=== PATIENT | female | born 1930 | race Caucasian/White ===

== ENCOUNTER 2016-11-06 14:13 | Emergency (ER) | payer MEDICARE ==
--- NOTE | 2016-11-06 14:41 | ERNOTE ---
Chest Pain/Cardiac HPI Date of Service: 11/06/16 Chief Complaint: Palpitations Time Seen by Provider: 11/06/16 14:41 Source: patient, family Exam Limitations: no limitations Immunizations: IMMUNIZATION HX History of Influenza Vaccine No Allergies/Adverse Reactions: Allergies No Known Allergies Allergy (Verified 11/06/16 14:29) Home Medications: HOME MEDICATIONS Calcium Carbonate/Vitamin D3 [Calcarb 600 With Vitamin D] 1 tab PO DAILY [Last Taken 06/22/16] Multivit with Calcium,Iron,Min [Women's Daily Formula] 1 each PO DAILY 06/22/16 [Last Taken 06/22/16] Ubidecarenone [Co Q-10] 100 mg PO DAILY 06/22/16 [Last Taken 06/22/16] Warfarin Sodium [Coumadin] 2.5 mg PO SUMOWEFRSA 06/22/16 [Last Taken 06/21/16] Lisinopril 10 mg PO HS #60 tablet 06/23/16 [Last Taken Unknown] Warfarin Sodium [Jantoven] 5 mg PO TUTH 06/25/16 [Last Taken Unknown] Narrative: Presents with c/o heart palpitation. Occurred spontaneously at rest. Pt denies any recent ingestion of caffeine, or any other stimulant. She denies any chest pain or SOb. Timing: constant Severity/Quality: moderate Modifying Factors - Improves: Present: nothing Modifying Factors - Worsens: Present: nothing Associated Symptoms: Present: palpitations. Absent: headache, dizziness, syncope, cough, shortness of breath, diaphoresis, fever/chills, weakness Review of Systems - Review of Systems Constitutional: Present: no symptoms reported EYE: Present: no symptoms reported ENT: Present: no symptoms reported Respiratory: Present: no symptoms reported Cardiology: Present: See HPI Gastrointestinal/Abdominal: Present: no symptoms reported Genitourinary: Present: no symptoms reported Musculoskeletal: Present: no symptoms reported Skin: Present: no symptoms reported Neurological: Present: no symptoms reported Endocrine: Present: no symptoms reported Hematologic/Lymphatic: Present: no symptoms reported Psych: Present: no symptoms reported All Other Systems: All systems neg except as marked - Patient's Past Medical History Patient History - Cardiac/Respiratory: Atrial Fibrillation, Hypertension Patient History - Cancer: Other Patient History - Surgical Procedures: Appendectomy, Hysterectomy, Other Patient History - Other: None - Family History Mother Family History - Medical: Family History - Cardiac/Respiratory: No pertinent hx, History Unknown Father Family History - Medical: Family History - Cardiac/Respiratory: No pertinent hx, History Unknown Sister Family History - Medical: Family History - Cardiac/Respiratory: History Unknown Brother Family History - Medical: Family History - Cardiac/Respiratory: Aneurysm - Social History Living Situations: home Abuse History: No History of abuse Psych History: No pertinent hx Alcohol Use: none Drug Use: none - Immunizations History of Influenza Vaccine: No Physical Exam - Physical Exam General Appearance: Present: wd/wn, alert, no apparent distress Eye Exam: Normal inspection: bilateral, PERRL: bilateral, EOMI: bilateral Ears, Nose, Throat: Present: normal ENT inspection Neck: Present: normal inspection, nontender Respiratory: Present: no respiratory distress, normal breath sounds, no accessory muscle use, chest nontender, lungs clear Cardiovascular/Chest: Present: no murmur, irregularly irregular Gastrointestinal/Abdominal: Present: normal bowel sounds, nontender, nondistended, soft, no organomegaly Extremity Exam: Present: normal inspection, non-tender, normal range of motion, no edema Neurological Exam: Present: alert, oriented, other - tearful, and anxious about her palpitation. Skin Exam: Present: normal color, warm/dry ED Progress - Results and Orders Patient's Lab Results:: I have reviewed the patient's lab results. - Vital Signs Patient's Vital Signs:: I have reviewed the patient's vital signs. Vital Signs: Vital Signs 11/06/16 11/06/16 14:24 14:34 Temperature 36.8 C Pulse Rate 134 H 86 Respiratory 18 12 Rate Blood Pressure 146/97 134/84 O2 Sat by Pulse 96 96 Oximetry - EKG EKG: atrial fibrillation EKG read: Interp. by me - with RVR @ 140s. Repeat EKG: sinus rhythm with no significant ST or T wave abnormality. - X-Ray X-Ray #1 X-Ray: chest - No acute pulmonary finding - Progress/Reassessment Chief Complaint: Palpitations Progress:: Improved - Spontaneously. Departure - Departure Clinical Impression: Chronic a-fib Disposition: Home self-care Condition: Good Instructions: Atrial Fibrillation, [id number] Referrals: Librado Hearn MD [Primary Care Provider] -
[2016-11-06 14:42] LABS: Hemoglobin 12.6 gm/dL (12.5-16.0); Mean Cell Volume 102.6 fl (78-100); Mean Corpuscular Hemoglobin 33.2 pg (27-31); Mean Corpuscular Hgb Conc 32.3 g/dl (32-36); Mean Platelet Volume 10.7 fl (6.0-9.5); Neutrophil # 3.5 K/mm3 (1.3-6.0); Neutrophil % 58.9 % (42-75.0); Platelet Count 188 K/mm3 (150-450); Red Cell Distribution Width 12.8 % (11.5-14.0)
--- OUTSIDE RECORDS SUMMARY | 2016-11-06 14:51 | XMS REPORT | Continuity of Care Document ---
:1930 Author Organization [facility] ([facility]) Address [address] [place] [address] Phone [phone] Care Team Providers Name Role Phone Catherine Sarkar Primary Care Provider [phone] Source Comments This disclosure is being made pursuant to the Care Everywhere program, applicable federal and state laws, and may not contain all informaitonavailable regarding this patient.[facility] ([facility]) Active Allergies and Adverse Reactions No Known Allergies Current Medications Prescription Sig. Disp. Refills Start Date End Date Status multivitamin tablet Take 1 tablet by Active mouth daily warfarin 5 mg tablet Take 5 mg by Active mouth daily carvedilol 25 mg tablet Take 25 mg by Active mouth 2 times daily with meals lisinopril 20 mg tablet Take 20 mg by Active mouth daily potassium chloride 10 Take 10 mEq by Active mEq XR tablet mouth 2 times daily amiodarone 200 mg Take 1 tablet 90 tablet 3 07/06/2015 Active tablet (200 mg total) by mouth daily Active Problems Problem Noted Date Atrial flutter 07/06/2015 Diastolic dysfunction 07/06/2015 Essential hypertension 07/06/2015 Immunizations Name Dates Previously Given Next Due Hepatitis A, unspecified 01/12/2004,05/05/2003 Influenza, unspecified 08/09/2006,07/07/2004 Pneumococcal Polysaccharide, PPSV23 (Pneumovax 23) 05/01/2002 Typhoid Vi Polysaccharide 05/05/2003 Yellow Fever 05/05/2003 Social History Tobacco Use Types Packs/Day Years Used Date Never Smoker Last Filed Vital Signs Vital Sign Reading Time Taken Blood Pressure 130/72 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
[2016-11-06 14:54] LABS: Prothrombin Time (Patient) 15.6 Seconds (9.4-11.4)
[2016-11-06 15:01] LABS: Albumin * 3.5 gm/dl (3.4-5.0); Anion Gap 10.7 mmol/L (6.8-13.8); BUN/Creatinine Ratio 24.6 (9.0-21.6); Bilirubin, Total 0.4 mg/dL (0.0-1.1); Ca. Corrected For Albumin 8.8 mg/dL (8.4-10.2); Calcium * 8.7 mg/dL (7.9-10.9); Carbon Dioxide 30.6 mmol/L (24-32.6); Potassium 4.3 mmol/L (3.4-4.6); Total Protein 7.4 gm/dL (6.2-8.2); Troponin I 0.046 ng/ml (0.00-0.10)
[2016-11-06 15:03] LABS: INR 1.5 INR (0.90-1.10); Partial Thrombolplastin Time 30.6 Seconds (24-32)
[2016-11-06 16:01] VITALS: BP 140/76
== END 2016-11-06 16:01 | disposition home or self-care (01) ==
LOC: ER 14:13
DX: I48.2 Chronic atrial fibrillation (principal); Z79.01 Long term (current) use of anticoagulants; I10 Essential (primary) hypertension

== ENCOUNTER 2016-12-24 23:53 | Observation (INO) | payer MEDICARE ==
[2016-12-25] MEDS ORDERED: DILTIAZEM HCL 5 MG/ML VIAL IV ONE ×2 (00:05)
[2016-12-25] MEDS ORDERED: DILTIAZEM HCL 125 MG in DEXTROSE 5 % IN WATER 100 ML IV PRN ×2 (00:10)
--- NOTE | 2016-12-25 00:13 | ERNOTE ---
Chest Pain/Cardiac HPI Time Seen by Provider: 12/24/16 23:59 Source: patient, family Exam Limitations: no limitations Immunizations: IMMUNIZATION HX History of Influenza Vaccine No Allergies/Adverse Reactions: Allergies No Known Allergies Allergy (Verified 12/25/16 00:04) Home Medications: HOME MEDICATIONS Calcium Carbonate/Vitamin D3 [Calcarb 600 With Vitamin D] 1 tab PO DAILY [Last Taken 06/22/16] Multivit with Calcium,Iron,Min [Women's Daily Formula] 1 each PO DAILY 06/22/16 [Last Taken 06/22/16] Ubidecarenone [Co Q-10] 100 mg PO DAILY 06/22/16 [Last Taken 06/22/16] Warfarin Sodium [Coumadin] 2.5 mg PO TU 06/22/16 [Last Taken 06/21/16] Warfarin Sodium [Jantoven] 5 mg PO SUMOTUWETHFRSA 06/25/16 [Last Taken Unknown] Lisinopril 5 mg PO BID 12/25/16 [Last Taken Unknown] Narrative: Pt was sleeping and was awoken by chest and bilateral wrist pain. gave nitro x2 and waited 15 min and gave another nitro x2 then 325 mg ASA. pain did not resolve and they presented to the ED. Timing: other - improving Severity/Quality: moderate - 5/10 now, severe - 9/10 at peak, aching, burning Location: substernal Chest Pain Radiation: arms Activities at Onset: sleep Modifying Factors - Improves: Present: nitroglycerin Modifying Factors - Worsens: Present: nothing Nitro Today/Relief: 0.4 mg x 3 - x4, provided at home, mild relief Aspirin Treatment Today: 325 mg x 1, provided at home Associated Symptoms: Present: palpitations. Absent: dizziness - but states that he had to help her out of the chair, shortness of breath, diaphoresis, nausea, vomiting Prior Treatment: Reports: recently seen - by Dr. Hearn, INR was elevated and coumadin dose was reduced Review of Systems - Review of Systems Constitutional: Absent: recent illness, fever EYE: Present: no symptoms reported ENT: Present: no symptoms reported Respiratory: Absent: shortness of breath Cardiology: Present: See HPI Gastrointestinal/Abdominal: Absent: nausea Genitourinary: Present: no symptoms reported Musculoskeletal: Present: joint pain - bilateral wrists Skin: Absent: rash Neurological: Absent: headache, numbness, tingling Endocrine: Absent: excessive sweating Hematologic/Lymphatic: Present: easy bruising Psych: Present: no symptoms reported - Patient's Past Medical History Patient History - Cardiac/Respiratory: Atrial Fibrillation, Hypertension Patient History - Cancer: Other Patient History - Surgical Procedures: Appendectomy, Hysterectomy, Other Patient History - Other: None - Family History Mother Family History - Medical: Family History - Cardiac/Respiratory: No pertinent hx, History Unknown Father Family History - Medical: Family History - Cardiac/Respiratory: No pertinent hx, History Unknown Sister Family History - Medical: Family History - Cardiac/Respiratory: History Unknown Brother Family History - Medical: Family History - Cardiac/Respiratory: Aneurysm - Social History Living Situations: home Abuse History: No History of abuse Psych History: No pertinent hx Alcohol Use: none Drug Use: none - Immunizations History of Influenza Vaccine: No Physical Exam - Physical Exam General Appearance: Present: wd/wn, alert, moderate distress, thin Neck: Present: normal inspection, nontender Respiratory: Present: no respiratory distress, normal breath sounds, chest nontender, lungs clear Cardiovascular/Chest: Present: tachycardia, irregularly irregular Gastrointestinal/Abdominal: Present: normal bowel sounds, nontender, nondistended, soft Extremity Exam: Present: normal inspection, normal range of motion, no edema Neurological Exam: Present: alert, oriented, 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 Results and Orders: Laboratory Tests 12/25/16 12/25/16 12/25/16 00:10 00:10 00:10 WBC 6.1 Hgb 11.8 L Hct 36.6 L Plt Count 168 PT 34.5 H INR (Anticoag Therapy) 3.32 H PTT (Kellie) 37.1 H Sodium 143 H Potassium 4.0 Chloride 106 Carbon Dioxide 29.3 Anion Gap 11.7 BUN 41 H Creatinine 1.26 Est GFR (Non-Af Amer) 43 L BUN/Creatinine Ratio 32.5 H Random Glucose 132 H Calcium 9.3 Total Bilirubin 0.3 AST 39 ALT 26 Alkaline Phosphatase 96 Troponin I 0.033 Total Protein 7.0 Albumin 3.4 - Vital Signs Patient's Vital Signs:: I have reviewed the patient's vital signs. - EKG EKG: atrial fibrillation - with RVR 125-135 EKG read: Interp. by me - X-Ray X-Ray #1 X-Ray: chest Interpretation: Interp. by me X-ray Comments: No infiltrate or effusions, scarring left lung base present 11/09 also, stable. - Progress/Reassessment Progress Note-Subjective: 12/25/16 01:08 HR still variable but max back up to 115 at this time BP 100/52. Cardizem drip increased to 10 mg /hr. Pt 12/25/16 01:19 Spoke with [facility] hospitalist. She agrees with admit to [facility] for telemetry and continued cardizem drip Departure - Departure Clinical Impression: Atrial fibrillation with rapid ventricular response Disposition: [facility] Condition: Serious
[2016-12-25] MEDS ORDERED: NORMAL SALINE 1,000 ML IV PRN (00:16)
[2016-12-25 00:17] LABS: Hematocrit 36.6 % (37.0-47.0); Hemoglobin 11.8 gm/dL (12.5-16.0); Mean Corpuscular Hemoglobin 32.2 pg (27-31); Mean Corpuscular Hgb Conc 32.2 g/dl (32-36); Mean Platelet Volume 11.2 fl (6.0-9.5); Neutrophil # 3.1 K/mm3 (1.3-6.0); Neutrophil % 51.2 % (42-75.0); Platelet Count 168 K/mm3 (150-450); Red Blood Count 3.66 M/mm3 (4.2-5.4); Red Cell Distribution Width 13.1 % (11.5-14.0); White Blood Count 6.1 K/mm3 (4.0-10.5)
[2016-12-25 00:33] LABS: Prothrombin Time (Patient) 34.5 Seconds (9.4-11.4)
[2016-12-25 00:35] LABS: INR 3.32 INR (0.90-1.10); Partial Thrombolplastin Time 37.1 Seconds (24-32)
[2016-12-25 00:38] LABS: Albumin * 3.4 gm/dl (3.4-5.0); Anion Gap 11.7 mmol/L (6.8-13.8); BUN/Creatinine Ratio 32.5 (9.0-21.6); Bilirubin, Total 0.3 mg/dL (0.0-1.1); Ca. Corrected For Albumin 9.5 mg/dL (8.4-10.2); Calcium * 9.3 mg/dL (7.9-10.9); Carbon Dioxide 29.3 mmol/L (24-32.6); Troponin I 0.033 ng/ml (0.00-0.10)
--- OUTSIDE RECORDS SUMMARY | 2016-12-25 00:49 | XMS REPORT | Continuity of Care Document ---
:1930 Author Organization [facility] ([facility]) Address [address] [place] [address] Phone [phone] Care Team Providers Name Role Phone Catherine Sarkar Primary Care Provider [phone] Source Comments This disclosure is being made pursuant to the Care Everywhere program, applicable federal and state laws, and may not contain all informaitonavailable regarding this patient.[facility] ([facility]) Active Allergies and Adverse Reactions No Known [...] 07/06/2015 Diastolic dysfunction 07/06/2015 Essential hypertension 07/06/2015 Most Recent Encounters Date Type Specialty Providers Description 11/28/2016 Lab Requisition Pathology Lab Services, [facility] Dx: Neoplasm of uncertain behavior of skin 11/08/2016 Telephone Med GI/Hepatology Aleena Gipson Chief Comp: Referral Immunizations Name Dates Previously Given Next Due Hepatitis A, unspecified 01/12/2004,05/05/2003 Influenza, unspecified 08/09/2006,07/07/2004 Pneumococcal Polysaccharide, PPSV23 (Pneumovax 23) 05/01/2002 Typhoid Vi Polysaccharide 05/05/2003 Yellow Fever 05/05/2003 Social History Tobacco Use Types Packs/Day Years Used Date Never Smoker Last Filed Vital Signs Vital Sign Reading Time Taken Blood Pressure 130/72 07/06/2015 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 Pulse 56 07/06/2015 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 Temperature - - Respiratory Rate - - Height - - Weight 56.7 kg (125 lb) 07/06/2015 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 Body Mass Index - - Oxygen Saturation - - Plan of Care Health Maintenance Due Date Last Done Comments Hepatitis B Vaccine (1 of 3 - Primary 1930 Series) Tdap Vaccine 01/25/1939 Lipid Disorder Screening 01/25/1946 Td Vaccine 01/25/1946 Zoster Vaccine 1988 Pneumococcal Vaccine (2 of 2 - PCV13) 05/01/2003 05/01/2002 Influenza Vaccine: Seasonal Completed 08/09/2006, 07/07/2004 Results from Last 3 Months DERMATOPATHOLOGY EXAM (11/26/2016 10:46 AM) Component Value Range Case Report Surgical Pathology Case: [id number] Authorizing Provider:Lab Services, [facility] Collected: 11/26/2016 10:46 AM Pathologist: Hannah Alicea MD Received:11/28/2016 10:46 AM Specimens: A) - Skin, other, specify, R Zygoma B) - Skin, other, specify, L Cheek Diagnosis A.Skin, right zygoma, 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 B.Skin, left cheek, shave biopsy: Seborrheic keratosis. I have personally reviewed this case and edited the report as necessary. Clinical Information Tissue source/site: A. Skin shave-R zygoma. B. Skin shave-L cheek. Pertinent clinical history and findings: A. 0.8 hyperkeratotic horn like papule. B. 0.8 cm thickened scaly papule. Clinicaldifferential diagnosis: A. Cutaneous horn versus SCC. B. BCC versus SCC. Gross Description A.Received in formalin, in a container labeled Raven Hu, date of , and "R Zygoma", is a 1.0 x 0.6 x 0.4 cm meehan-mancilla shave biopsy.The specimen is inked, bisectedand submitted entirely in A1. AJF/christinaa B. Received in formalin in a container labeled with Raven Hu, hospital number, and "L cheek" is a 0.8 x 0.6 x 0.1 cm meehan-mancilla shave biopsy. The specimen is inked, bisectedand submitted entirely in B1. AJF/cja Microscopic Description A. Sections show a full thickness proliferation of atypical keratinocytes associated with overlying compact hyperkeratosis and parakeratosis.Margins are involved. B. Sections show a flat-bottomed hyperkeratotic papilloma composed of cytologically bland basaloid epithelial cells associated with horned cysts and pseudo-horned cysts. Performed by:Hao Bartholomew MD, R4/elham Specimen Skin - Skin, other, specify
--- OUTSIDE RECORDS SUMMARY | 2016-12-25 01:23 | XMS REPORT | Continuity of Care Document ---
:1930 Author Organization [facility] ([facility]) Address [address] [place] [address] Phone [phone] Care Team Providers Name Role Phone Catherine Sarkar Primary Care Provider [phone] Source Comments This disclosure is being made pursuant to the Care Everywhere program, applicable federal and state laws, and may not contain all informaitonavailable regarding this patient.[facility] ([facility]) Active Allergies and Adverse Reactions No [...] Description 11/28/2016 Lab Requisition Pathology Lab Services, [facility] Dx: Neoplasm of uncertain behavior of skin [...] Taken Blood Pressure 130/72 07/06/2015 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
--- NOTE | 2016-12-25 03:35 | HP ---
Chief Complaint - Chief Complaint Date of Service: 12/25/16 Time of Service: 02:40 Chief Complaint: Chest pain History of Present Illness: 86 years old female adm to the hospital with reports of chest pain radiating to BL arms and across the chest. Associated s/s nausea, palpitation, diaphoresis, shortness of breath and loose stool. Pt denies dizziness, vomiting and headache. While at home she took Nitro tab x3 and aspirin 325mg x1 without much relief so her brought her to the ER. PMH significant for A-fib (on Coumadin its dose was recently lowered, she was on amiodarone and Coreg but it was D/C by her PCP in 2015), Hypertension, hyperlipidemia, CHF( 06/2015 2D echo : Biatrial enlargement, mild LVH EF60%), osteoporosis and kidney stones. While in ER CXR: No acute cardiopulmonary abnormality,initial Troponin 0.033, EKG- Afib RVR, she was started on Cardizem drip. Adm to the unit on Cardizem drip and later converted to NSR. Plan of care discussed with pt she verbalized understanding and agrees. - Patient's Past Medical History Patient History - Medical: No pertinent hx, Kidney stone, Osteoporosis, Other - BL wrist pain , sciatica Patient History - Cardiac/Respiratory: Atrial Fibrillation, Hypertension, Hyperlipidemia Patient History - Cancer: No Hx of Cancer Patient History - Surgical Procedures: Appendectomy, Hysterectomy, Other - 2012 ORIF lateral epicondyle right knee Patient History - Other: None LMP (females 10-50): Menopausal - Family History Mother Family History - Medical: Family History - Cardiac/Respiratory: No pertinent hx, History Unknown Father Family History - Medical: Family History - Cardiac/Respiratory: No pertinent hx, History Unknown Sister Family History - Medical: Family History - Cardiac/Respiratory: History Unknown Brother Family History - Medical: Family History - Cardiac/Respiratory: Aneurysm - Social History Living Situations: spouse Abuse History: No History of abuse Psych History: No pertinent hx Smoking Status: Never smoker Have you smoked in the past 12 months: No Do you dip or chew tobacco: No Alcohol Use: none Drug Use: none - Immunizations Immunizations Up to Date: Yes Hx Pneumococcal Vaccination: Yes History of Influenza Vaccine: No Review Of Systems (GEN) - Review of Systems Generalized/Overall Review: Present: No Symptoms Reported EENTM: Present: No Symptoms Reported Respiratory: Present: No Symptoms Reported Abdominal: Present: No Symptoms Reported Genitourinary: Present: Incontinent Musculoskeletal: Present: Joint Pain Neurological: Present: No Symptoms Reported Skin: Present: No Symptoms Reported Immunizations: IMMUNIZATION HX History of Influenza Vaccine No Allergies/Adverse Reactions: Allergies Allergy/AdvReac Type Severity Reaction Status Date / Time No Known Allergies Allergy Verified 12/25/16 00:04 Home Medications: HOME MEDICATIONS Calcium Carbonate/Vitamin D3 [Calcarb 600 With Vitamin D] 1 tab PO DAILY [Last Taken 12/24/16] Multivit with Calcium,Iron,Min [Women's Daily Formula] 1 each PO DAILY 06/22/16 [Last Taken 12/24/16] Ubidecarenone [Co Q-10] 100 mg PO DAILY 06/22/16 [Last Taken 12/24/16] Warfarin Sodium [Coumadin] 2.5 mg PO TU 06/22/16 [Last Taken 06/21/16] Warfarin Sodium [Jantoven] 5 mg PO SUMOTUWETHFRSA 06/25/16 [Last Taken 12/24/16] Lisinopril 5 mg PO BID 12/25/16 [Last Taken 12/24/16] Exam - Exam Vital Signs: Vital Signs - Last Taken Temp 37.0 C 12/25/16 01:45 Pulse 73 12/25/16 01:45 Resp 18 12/25/16 01:45 BP 151/78 12/25/16 01:45 Pulse Ox 96 12/25/16 01:45 Constitutional: Present: Alert, Oriented x3, Cooperative, Well developed, No distress, Elderly ENT Exam: Present: moist mucous membranes Eye Exam: bilateral eye: PERRL Neck: Present: full range of motion Back Exam: Present: normal inspection Respiratory: Present: chest non-tender, lungs clear, normal breath sounds, no respiratory distress, no accessory muscle use Cardiovascular/Chest: Present: normal peripheral pulses, regular rate, rhythm, no chest tenderness, no edema, no gallop Peripheral Pulses: dorsalis-pedis (R): 3+, dorsalis-pedis (L): 3+ Abdomen: Present: Normal bowel sounds, soft, nontender, nondistended, no rebound tenderness /Rectal: Present: Exam deferred Extremity: Present: normal range of motion, non-tender, normal inspection, no pedal edema, no calf tenderness Skin Exam: Present: normal color, warm/dry, no cyanosis Lymphatic: Present: no adenopathy Neurologic: Present: oriented x 3 Appearance: Present: appropriate appearance Eye contact: Present: cooperative, good eye contact Thoughts: Present: normal thought pattern Diagnostic Studies: Laboratory Results WBC 6.1 K/mm3 (4.0-10.5) 12/25/16 00:10 RBC 3.66 M/mm3 (4.2-5.4) L 12/25/16 00:10 Hgb 11.8 gm/dL (12.5-16.0) L 12/25/16 00:10 Hct 36.6 % (37.0-47.0) L 12/25/16 00:10 MCV 100.0 fl (78-100) 12/25/16 00:10 MCH 32.2 pg (27-31) H 12/25/16 00:10 MCHC 32.2 g/dl (32-36) 12/25/16 00:10 RDW 13.1 % (11.5-14.0) 12/25/16 00:10 Plt Count 168 K/mm3 (150-450) 12/25/16 00:10 MPV 11.2 fl (6.0-9.5) H 12/25/16 00:10 Immature Gran % (Auto) 0.20 % (0.001-0.429) 12/25/16 00:10 Immature Gran # (Auto) 0.01 K/mm3 (0.000-0.0310) 12/25/16 00:10 Neutrophils % 51.2 % (42-75.0) 12/25/16 00:10 Lymphocytes % 31.9 % (20-51) 12/25/16 00:10 Monocytes % 12.6 % (0.0-9) H 12/25/16 00:10 Eosinophils % 3.4 % (0.0-3.0) H 12/25/16 00:10 Basophils % 0.7 % (0.0-1.0) 12/25/16 00:10 Nucleated RBC % 0.0 k/mm3 (0-1) 12/25/16 00:10 Neutrophils # 3.1 K/mm3 (1.3-6.0) 12/25/16 00:10 Lymphocytes # 1.9 k/mm3 (1.5-3.5) 12/25/16 00:10 Monocytes # 0.8 k/mm3 (0.0-1.0) 12/25/16 00:10 Eosinophils # 0.2 k/mm3 (0.0-0.7) 12/25/16 00:10 Absolute Basophils 0.0 k/mm3 (0.0-0.1) 12/25/16 00:10 PT 34.5 Seconds (9.4-11.4) H 12/25/16 00:10 INR (Anticoag Therapy) 3.32 INR (0.90-1.10) H 12/25/16 00:10 PTT ([place]) 37.1 Seconds (24-32) H 12/25/16 00:10 Sodium 143 mmol/L (132-142) H 12/25/16 00:10 Plasma Sodium 144 mmol/L (130-142) H 12/25/16 00:10 Potassium 4.0 mmol/L (3.4-4.6) 12/25/16 00:10 Chloride 106 mmol/L (97-106) 12/25/16 00:10 Carbon Dioxide 29.3 mmol/L (24-32.6) 12/25/16 00:10 Anion Gap 11.7 mmol/L (6.8-13.8) 12/25/16 00:10 BUN 41 mg/dL (3-23) H 12/25/16 00:10 Creatinine 1.26 mg/dL (0.4-1.4) 12/25/16 00:10 Est GFR (Non-Af Amer) 43 mL/min (60-130) L 12/25/16 00:10 BUN/Creatinine Ratio 32.5 (9.0-21.6) H 12/25/16 00:10 Random Glucose 132 mg/dL (70-110) H 12/25/16 00:10 Calcium 9.3 mg/dL (7.9-10.9) 12/25/16 00:10 Calcium Adj for Albumin 9.5 mg/dL (8.4-10.2) 12/25/16 00:10 Total Bilirubin 0.3 mg/dL (0.0-1.1) 12/25/16 00:10 AST 39 U/L (0-48) 12/25/16 00:10 ALT 26 U/L (19-67) 12/25/16 00:10 Alkaline Phosphatase 96 U/L (50-170) 12/25/16 00:10 Troponin I 0.033 ng/ml (0.00-0.10) 12/25/16 00:10 Total Protein 7.0 gm/dL (6.2-8.2) 12/25/16 00:10 Albumin 3.4 gm/dl (3.4-5.0) 12/25/16 00:10 Assessment/Plan - Narrative Narrative: Acute on chronic Paroxysmal A-fib Seen on EKG: A-fib RVR, initial troponin 0.033 Cardizem drip initiated, was converted to NSR while on unit. Stopped drip and initiated Metoprolol 12.5mg BID Pt was taking Amiodarone and coreg in 2015 but medication was stopped by PCP Continue with telemetry monitoring 2D echo pending TSH pending Continue with Coumadin, on adm INR 3.32 pharmacy to dose. Hypertension-stable continue to monitor vital signs Resume home dose of lisinopril Hyperlipidemia Lipid panel pending CHF- stable 06/2015 2D Echo: Biatrial enlargement, mild LVH EF 60% Code status: Full VTE ppx: Therapeutic Coumadin and ambulate Anticipate discharge home 0-2 days and follow up with PCP Time 40 minutes and previous records reviewed. - Assessment/Plan (1) Atrial fibrillation with rapid ventricular response Problem: Acute (2) CHF (congestive heart failure), NYHA class III Problem: Chronic (3) Hypertension Problem: Chronic Qualifiers: Hypertension type: essential hypertension Qualified Code(s): I10 - Essential (primary) hypertension
[2016-12-25 06:14] LABS: Prothrombin Time (Patient) 34.4 Seconds (9.4-11.4)
[2016-12-25 06:20] LABS: INR 3.31 INR (0.90-1.10)
[2016-12-25 06:33] LABS: Anion Gap 11.5 mmol/L (6.8-13.8); BUN/Creatinine Ratio 34.7 (9.0-21.6); Calcium * 8.7 mg/dL (7.9-10.9); Carbon Dioxide 29.6 mmol/L (24-32.6); Chol/HDL Risk Ratio 4.1 mg/dL (3.3-4.4); Estimated Creat Clear 30.9; Potassium 4.1 mmol/L (3.4-4.6)
[2016-12-25 06:37] LABS: Troponin I 0.455 ng/ml (0.00-0.10)
[2016-12-25] MEDS ORDERED: WARFARIN SODIUM 5 MG TABLET PO SCH ×2 (07:15)
[2016-12-25 07:27] LABS: TSH * 101.515 uIU/mL (0.358-3.74)
[2016-12-25] MEDS ORDERED: LISINOPRIL 5 MG TABLET PO SCH (09:00)
[2016-12-25] MEDS ORDERED: METOPROLOL TARTRATE 25 MG TABLET PO SCH (09:00)
[2016-12-25] MEDS ORDERED: AMIODARONE HCL 200 MG TABLET PO SCH (09:00)
[2016-12-25] MEDS: MULTIVITAMINS 1 TAB TAB.CHEW PO SCH (09:47)
[2016-12-25] MEDS: CALCIUM CARBONATE/VITAMIN D3 1 TAB TABLET PO SCH (09:47)
[2016-12-25] MEDS: Co Q-10 100 MG PO SCH (09:49)
[2016-12-25] MEDS: LEVOTHYROXINE SODIUM 50 MCG TABLET PO SCH (09:57)
[2016-12-25] MEDS ORDERED: ROSUVASTATIN CALCIUM 10 MG TABLET PO SCH (21:00)
[2016-12-26 05:36] LABS: Prothrombin Time (Patient) 31.5 Seconds (9.4-11.4)
[2016-12-26 05:54] LABS: INR 3.03 INR (0.90-1.10)
[2016-12-26] MEDS: LEVOTHYROXINE SODIUM 50 MCG TABLET PO SCH (06:26)
[2016-12-26 06:52] VITALS: BP 140/72
[2016-12-26] MEDS: CALCIUM CARBONATE/VITAMIN D3 1 TAB TABLET PO SCH (08:42)
[2016-12-26] MEDS: MULTIVITAMINS 1 TAB TAB.CHEW PO SCH (08:42)
[2016-12-26] MEDS: Co Q-10 100 MG PO SCH (08:43)
--- NOTE | 2016-12-26 08:47 | DS ---
(1) Atrial fibrillation with rapid ventricular response Problem: Acute (2) CHF (congestive heart failure), NYHA class III Problem: Chronic (3) CAD (coronary artery disease), [place] coronary artery Problem: Acute (4) Hypothyroid Problem: Acute Description of Stay: 86 years old white female was admitted through emergency room because of chest pain and shortness of breath she was in atrial fibrillation with rapid ventricular response she was treated with Cardizem drip and she converted to normal sinus rhythm. troponin went up to 0.4. She was given some IV bolus because of hypotension. She remained stable remained to be in normal sinus rhythm. She was started on amiodarone 400 mg daily. TSH is markedly elevated so she was started on levothyroxine 50 g a day. cardiology consultation was obtained from Dr. Ghotra according to her patient did not have NV the elevated troponin was due to demand ischemia. Echocardiogram showed normal ejection fraction and no wall motion abnormality but showed pulmonary hypertension. She remained stable and feeling better so she will be discharged Procedures Performed: none Discharge Disposition: Home self care Disposition: Home self-care Condition: Fair Discharge Activity: Activity as tolerated Referrals: Librado Hearn MD [Primary Care Provider] - Additional Patient Instructions (free text): Follow-up in one week with Dr. Hearn Chest x-ray CMP BNP and TSH in 1 week Prescriptions (Any new or edited meds): Amiodarone HCl [Cordarone] 200 mg PO DAILY #100 tablet Levothyroxine Sodium [Synthroid] 50 mcg PO DAILY@0700 #30 tablet Complete Home Medications List: Complete Home Medication List: Calcium Carbonate/Vitamin D3 [Calcarb 600 With Vitamin D] 1 tab PO DAILY Multivit with Calcium,Iron,Min [Women's Daily Formula] 1 each PO DAILY 06/22/16 Ubidecarenone [Co Q-10] 100 mg PO DAILY 06/22/16 Warfarin Sodium [Coumadin] 7 mg PO MO 06/22/16 Warfarin Sodium [Jantoven] 5 mg PO SUTUWETHFRSA 06/25/16 Lisinopril 5 mg PO BID 12/25/16 Amiodarone HCl [Cordarone] 200 mg PO DAILY #100 tablet 12/26/16 Levothyroxine Sodium [Synthroid] 50 mcg PO DAILY@0700 #30 tablet 12/26/16
[2016-12-26] MEDS ORDERED: LISINOPRIL 5 MG TABLET PO SCH (09:00)
[2016-12-26] MEDS ORDERED: ASPIRIN 81 MG TABLET.DR PO SCH (09:00)
[2016-12-26] MEDS ORDERED: AMIODARONE HCL 200 MG TABLET PO SCH (09:00)
--- NOTE | 2016-12-26 13:46 | ECHO ---
This report is available in the EMR
[2016-12-26] MEDS ORDERED: WARFARIN SODIUM 1 TAB TAB PO SCH (17:00)
== END 2016-12-26 09:30 | disposition home or self-care (01) ==
LOC: ER 23:53 → SCU 12-25 01:19 → UNDOADMIN 12-25 01:19 → SCU 12-25 13:13 → INTOOBSV 12-25 13:13 → MS 12-25 13:35
PROVIDERS: ADMIT Nurse Practitioner; ATTEND Internal Medicine
DX: I48.2 Chronic atrial fibrillation (principal); Z79.01 Long term (current) use of anticoagulants; I25.10 Atherosclerotic heart disease of native coronary artery without angina pectoris; I10 Essential (primary) hypertension; E03.9 Hypothyroidism, unspecified

== ENCOUNTER 2017-09-17 08:46 | Observation (INO) | payer MEDICARE ==
[2017-09-17] MEDS ORDERED: MORPHINE SULFATE 2 MG/ML DISP.SYRIN IV ONE ×2 (09:15→14:17)
[2017-09-17] MEDS ORDERED: MORPHINE SULFATE 2 MG/ML DISP.SYRIN ONE (09:19)
--- NOTE | 2017-09-17 09:23 | ERNOTE ---
Back Pain ER HPI Presenting Symptoms: other - flank pain Time Seen by Provider: 09/17/17 09:09 Source: patient, family Exam Limitations: no limitations Immunizations: IMMUNIZATION HX Immunizations Up to Date Yes History of Influenza Vaccine No Hx Pneumococcal Vaccination Yes Allergies/Adverse Reactions: Allergies No Known Allergies Allergy (Verified 09/17/17 08:54) Home Medications: HOME MEDICATIONS Calcium Carbonate/Vitamin D3 [Calcarb 600 With Vitamin D] 1 tab PO DAILY [Last Taken 12/24/16] Multivit with Calcium,Iron,Min [Women's Daily Formula] 1 each PO DAILY 06/22/16 [Last Taken 12/24/16] Ubidecarenone [Co Q-10] 100 mg PO DAILY 06/22/16 [Last Taken 12/24/16] Warfarin Sodium [Coumadin] 7 mg PO MO 06/22/16 [Last Taken 06/21/16] Warfarin Sodium [Jantoven] 5 mg PO SUTUWETHFRSA 06/25/16 [Last Taken 12/24/16] Lisinopril 5 mg PO BID 12/25/16 [Last Taken 12/24/16] Amiodarone HCl [Cordarone] 200 mg PO DAILY #100 tablet 12/26/16 [Last Taken Unknown] Levothyroxine Sodium [Synthroid] 50 mcg PO DAILY@0700 #30 tablet 12/26/16 [Last Taken Unknown] Narrative: Patient presents to the ED with right flank pain. She relates that this started overnight at 2am when it woke her from sleep. it has been waxing and waning since then but has not gone away. Pain right low abdomen initially, now that has resolved and it has moved to her right back. it has been persistent in the right flank since then. No vomiting or fever. No dysuria. 8/10 pain now. No CP or SOB. No other focal N/T/W. Timing: Reports: constant Quality/Severity: Reports: severe Location of pain: Reports: other - right flank Activities at Onset: Reports: none Recent Injury?: Reports: no Possible Precipitating Factor: Reports: none Modifying Factors - (Worsens): Reports: nothing Associated Symptoms: Denies: fever/chills, constipation/incontinence, problems urinating, difficulty walking, numbess/weakness in legs Prior Treament: Denies: recently seen Review of Systems - Review of Systems Constitutional: Absent: fever EYE: Present: no symptoms reported ENT: Present: no symptoms reported Respiratory: Absent: shortness of breath Cardiology: Absent: chest pain Gastrointestinal/Abdominal: Present: See HPI Genitourinary: Present: See HPI Musculoskeletal: Present: See HPI Skin: Absent: rash Neurological: Absent: weakness - Patient's Past Medical History Patient History - Medical: No pertinent hx, Kidney stone, Osteoporosis, Other Patient History - Cardiac/Respiratory: Atrial Fibrillation, Hypertension, Hyperlipidemia Patient History - Cancer: No Hx of Cancer Patient History - Surgical Procedures: Appendectomy, Hysterectomy, Other Patient History - Other: None - Family History Mother Family History - Medical: Family History - Cardiac/Respiratory: No pertinent hx, History Unknown Father Family History - Medical: Family History - Cardiac/Respiratory: No pertinent hx, History Unknown Sister Family History - Medical: Family History - Cardiac/Respiratory: History Unknown Brother Family History - Medical: Family History - Cardiac/Respiratory: Aneurysm - Social History Living Situations: home Abuse History: No History of abuse Psych History: No pertinent hx Alcohol Use: none Drug Use: none - Immunizations Immunizations Up to Date: Yes Hx Pneumococcal Vaccination: Yes History of Influenza Vaccine: No Physical Exam - Physical Exam General Appearance: Present: alert, no apparent distress Head Exam: Present: normal inspection, no evidence of injury Eye Exam: Normal inspection: bilateral, PERRL: bilateral Ears, Nose, Throat: Present: normal ENT inspection Neck: Present: normal inspection Respiratory: Present: no respiratory distress, normal breath sounds, no accessory muscle use, lungs clear Cardiovascular/Chest: Present: regular rate, rhythm, normal peripheral pulses Gastrointestinal/Abdominal: Present: normal bowel sounds, nontender, nondistended, soft Back Exam: Present: normal inspection, normal range of motion, no vertebral tenderness, CVA tenderness (R) Extremity Exam: Present: normal inspection, normal range of motion Neurological Exam: Present: alert, normal mood/affect, no motor/sensory deficits Skin Exam: Present: normal color, warm/dry ED Progress - Results and Orders Patient's Lab Results:: I have reviewed the patient's lab results. - Vital Signs Patient's Vital Signs:: I have reviewed the patient's vital signs. Vital Signs: Vital Signs 09/17/17 08:49 Temperature 36.5 C Pulse Rate 66 Respiratory 12 Rate Blood Pressure 200/70 O2 Sat by Pulse 94 Oximetry - CT/Ultrasound CT/Ultrasound Narrative: I reviewed CT abd/pelvis report per radiology - Progress/Reassessment Chief Complaint: Back Pain Progress Note-Subjective: 09/17/17 11:57 D/W Urology (Dr. Soriano). He recommends reversal of coumadin, IV urogram, cath UA and admission. He recommends holding off on ABx pending cath UA results. He will consult. NPO for now per Urology. Pt agreeable. D/W Dr Springer who will admit with Urology consultation. 09/17/17 11:59 Departure Clinical Impression: Flank pain, Abnormal CT scan, Supratherapeutic INR - Departure Disposition: [facility] Condition: Stable
[2017-09-17 09:34] LABS: Hematocrit 41.9 % (37.0-47.0); Hemoglobin 13.6 gm/dL (12.5-16.0); Mean Cell Volume 93.9 fl (78-100); Mean Corpuscular Hemoglobin 30.5 pg (27-31); Mean Corpuscular Hgb Conc 32.5 g/dl (32-36); Mean Platelet Volume 11.4 fl (6.0-9.5); Neutrophil # 3.8 K/mm3 (1.3-6.0); Neutrophil % 63.8 % (42-75.0); Platelet Count 172 K/mm3 (150-450); Red Blood Count 4.46 M/mm3 (4.2-5.4); Red Cell Distribution Width 14.3 % (11.5-14.0)
[2017-09-17 09:40] LABS: Urine Bilirubin Negative (NEGATIVE); Urine Blood 250 /ul (NEGATIVE); Urine Ketone Negative (NEGATIVE); Urine Nitrite Negative (NEGATIVE); Urine Protein 30 mg/dL (NEGATIVE); Urine Specific Gravity 1.015 SP.GR. (1.005-1.010); Urine Urobilinogen Normal (NORMAL)
[2017-09-17 09:53] LABS: Urine Appearance Slightly Cloudy; Urine Bacteria 2+; Urine Color Yellow; Urine RBC 25-50 /hpf (0-5)
[2017-09-17 09:55] LABS: Albumin * 3.7 gm/dl (3.4-5.0); Anion Gap 6.8 mmol/L (6.8-13.8); BUN/Creatinine Ratio 27.3 (9.0-21.6); Bilirubin, Total 0.8 mg/dL (0.0-1.1); Calcium * 9.1 mg/dL (7.9-10.9); Carbon Dioxide 33.6 mmol/L (24-32.6); Potassium 4.4 mmol/L (3.4-4.6); Total Protein 7.7 gm/dL (6.2-8.2)
[2017-09-17 10:02] LABS: INR 5.31 INR (0.90-1.10)
[2017-09-17] MEDS: NORMAL SALINE 1,000 ML IV PRN (11:46)
[2017-09-17] MEDS ORDERED: PHYTONADIONE (VIT K1) 5 MG TABLET PO ONE (11:56)
[2017-09-17] MEDS ORDERED: PHYTONADIONE (VIT K1) 5 MG TABLET ONE (12:02)
[2017-09-17 12:31] LABS: Urine Bilirubin Negative (NEGATIVE); Urine Blood 250 /ul (NEGATIVE); Urine Ketone Negative (NEGATIVE); Urine Nitrite Negative (NEGATIVE); Urine Protein 30 mg/dL (NEGATIVE); Urine Specific Gravity 1.025 SP.GR. (1.005-1.010); Urine Urobilinogen Normal (NORMAL); Urine pH 6.5 pH (5.0-7.0)
[2017-09-17 12:48] LABS: Urine Appearance Slightly Cloudy; Urine Color Yellow; Urine WBC TRACE /hpf (0-5)
[2017-09-17 12:49] LABS: Urine Bacteria 1+
--- NOTE | 2017-09-17 14:27 | HP ---
Chief Complaint - Chief Complaint Date of Service: 09/17/17 Time of Service: 14:09 Chief Complaint: right flank pain History of Present Illness: Raven Hu, is an 87-year-old live female, patient of Dr. Hearn, with previous medical history of paroxysmal atrial fibrillation, congestive heart failure, essential hypertension,hypothyroid, TIA, who was admitted on 2017 because of right flank pain. One day prior to admission the patient's INR was elevated at 5.8 due to Coumadin which she takes for her paroxysmal atrial fibrillation. The patient did not have any gross bleeding as per assisted living personnel. Coumadin was put on hold. 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 The pain did not improve and settled down and her right flank area and so she went to the emergency room because she thought she had a kidney stone like in the years past. The CT scan in the emergency room did not show any kidney stones but did show a mass in her mid pole of her right kidney. The differential included renal cyst, hemorrhage in the renal cyst or even a renal tumor. The emergency room physician consulted the urologist and he recommended doing the CT urogram , get a cath UA, reversing the Coumadin and admitting the patient. The patient currently says that her pain is for over 10. She got 5 mg of Vit K in the ER. - Patient's Past Medical History Patient History - Medical: No pertinent hx, Kidney stone, Osteoporosis, Other Patient History - Cardiac/Respiratory: Atrial Fibrillation, CVA/Stroke, Hypertension, Hyperlipidemia Patient History - Cancer: No Hx of Cancer Patient History - Surgical Procedures: Appendectomy, Hysterectomy Patient History - Other: None - Family History Mother Family History - Medical: Family History - Cardiac/Respiratory: No pertinent hx, History Unknown Family History - Cancer: No pertinent family hx Father Family History - Medical: Family History - Cardiac/Respiratory: No pertinent hx, History Unknown Family History - Cancer: No pertinent family hx Sister Family History - Medical: Family History - Cardiac/Respiratory: History Unknown Family History - Cancer: No pertinent family hx Brother Family History - Medical: Family History - Cardiac/Respiratory: Aneurysm Family History - Cancer: No pertinent family hx - Social History Living Situations: spouse Abuse History: No History of abuse Psych History: No pertinent hx Smoking Status: Never smoker Have you smoked in the past 12 months: No Do you dip or chew tobacco: No Patient requests Smoking Cessation Consult: No Initiate information on Smoking Cessation: No Alcohol Use: none Drug Use: none - Immunizations Immunizations Up to Date: Yes Hx Pneumococcal Vaccination: Yes History of Influenza Vaccine: No Review Of Systems (GEN) - Review of Systems Generalized/Overall Review: Absent: Chills, Fever Respiratory: Absent: Cough, Shortness of Breath Cardiac: Absent: Chest Pain, Edema, Palpitations Abdominal: Absent: Nausea, Vomiting Genitourinary: Absent: Urgency, Frequency Musculoskeletal: Present: Back Pain Immunizations: IMMUNIZATION HX Immunizations Up to Date Yes History of Influenza Vaccine No Hx Pneumococcal Vaccination Yes Allergies/Adverse Reactions: Allergies Allergy/AdvReac Type Severity Reaction Status Date / Time No Known Allergies Allergy Verified 09/17/17 14:06 Home Medications: HOME MEDICATIONS Warfarin Sodium [Coumadin] 7 mg PO MO 06/22/16 [Last Taken 06/21/16] Warfarin Sodium [Jantoven] 5 mg PO SUTUWETHFRSA 06/25/16 [Last Taken 12/24/16] Amiodarone HCl [Cordarone] 200 mg PO DAILY #100 tablet 12/26/16 [Last Taken Unknown] Levothyroxine Sodium [Synthroid] 50 mcg PO DAILY@0700 #30 tablet 12/26/16 [Last Taken Unknown] Aloe Vera 25 mg PO DAILY 09/17/17 [Last Taken Unknown] L.acidoph,Paracasei, B.lactis [Probiotic] 1 each PO DAILY 09/17/17 [Last Taken Unknown] Exam - Exam Vital Signs: Vital Signs - Last Taken Temp 36.7 C 09/17/17 13:40 Pulse 60 09/17/17 13:40 Resp 18 09/17/17 13:40 BP 188/81 09/17/17 13:40 Pulse Ox 96 09/17/17 13:40 Constitutional: Present: Alert, Oriented x3, Cooperative, Elderly, Thin and frail ENT Exam: Present: hearing grossly normal Eye Exam: bilateral eye: normal inspection, PERRL, EOMI Back Exam: Present: CVA tenderness (R) - mild Cardiovascular/Chest: Present: regular rate, rhythm, no murmur, JVD Abdomen: Present: Normal bowel sounds, soft, nontender, nondistended Extremity: Present: no pedal edema, no calf tenderness Diagnostic Studies: Abnormal Lab Results 09/17/17 Range/Units 12:14 Urine Protein 30 H (NEGATIVE) mg/dL Urine Blood 250 H (NEGATIVE) /ul Prot Sulfosalicylic Acd 2+ H (0) mg/dL Urine RBC 10-25 H (0-5) /hpf Urine WBC Trace H (0-5) /hpf Urine Bacteria 1+ H (NONE) Laboratory Results WBC 6.0 K/mm3 (4.0-10.5) 09/17/17 09:25 RBC 4.46 M/mm3 (4.2-5.4) 09/17/17 09:25 Hgb 13.6 gm/dL (12.5-16.0) 09/17/17 09:25 Hct 41.9 % (37.0-47.0) 09/17/17 09:25 MCV 93.9 fl (78-100) 09/17/17 09:25 MCH 30.5 pg (27-31) 09/17/17 09:25 MCHC 32.5 g/dl (32-36) 09/17/17 09:25 RDW 14.3 % (11.5-14.0) H 09/17/17 09:25 Plt Count 172 K/mm3 (150-450) 09/17/17 09:25 MPV 11.4 fl (6.0-9.5) H 09/17/17 09:25 Immature Gran % (Auto) 0.20 % (0.001-0.429) 09/17/17 09:25 Immature Gran # (Auto) 0.01 K/mm3 (0.000-0.0310) 09/17/17 09:25 Neutrophils % 63.8 % (42-75.0) 09/17/17 09:25 Lymphocytes % 16.5 % (20-51) L 09/17/17 09:25 Monocytes % 17.0 % (0.0-9) H 09/17/17 09:25 Eosinophils % 2.2 % (0.0-3.0) 09/17/17 09:25 Basophils % 0.3 % (0.0-1.0) 09/17/17 09:25 Nucleated RBC % 0.0 k/mm3 (0-1) 09/17/17 09:25 Neutrophils # 3.8 K/mm3 (1.3-6.0) 09/17/17 09:25 Lymphocytes # 1.0 k/mm3 (1.5-3.5) L 09/17/17 09:25 Monocytes # 1.0 k/mm3 (0.0-1.0) 09/17/17 09:25 Eosinophils # 0.1 k/mm3 (0.0-0.7) 09/17/17 09:25 Absolute Basophils 0.0 k/mm3 (0.0-0.1) 09/17/17 09:25 PT 54.0 Seconds (9.0-11.0) H 09/17/17 09:25 INR (Anticoag Therapy) 5.31 INR (0.90-1.10) H* 09/17/17 09:25 Sodium 142 mmol/L (132-142) 09/17/17 09:25 Plasma Sodium 142 mmol/L (130-142) 09/17/17 09:25 Potassium 4.4 mmol/L (3.4-4.6) 09/17/17 09:25 Chloride 106 mmol/L (97-106) 09/17/17 09:25 Carbon Dioxide 33.6 mmol/L (24-32.6) H 09/17/17 09:25 Anion Gap 6.8 mmol/L (6.8-13.8) 09/17/17 09:25 BUN 27 mg/dL (3-23) H 09/17/17 09:25 Creatinine 0.99 mg/dL (0.4-1.4) 09/17/17 09:25 Est GFR (Non-Af Amer) 56 mL/min (60-130) L 09/17/17 09:25 BUN/Creatinine Ratio 27.3 (9.0-21.6) H 09/17/17 09:25 Random Glucose 94 mg/dL (70-110) 09/17/17 09:25 Calcium 9.1 mg/dL (7.9-10.9) 09/17/17 09:25 Calcium Adj for Albumin 9.0 mg/dL (8.4-10.2) 09/17/17 09:25 Total Bilirubin 0.8 mg/dL (0.0-1.1) 09/17/17 09:25 AST 39 U/L (0-48) 09/17/17 09:25 ALT 38 U/L (19-67) 09/17/17 09:25 Alkaline Phosphatase 125 U/L (50-170) 09/17/17 09:25 Total Protein 7.7 gm/dL (6.2-8.2) 09/17/17 09:25 Albumin 3.7 gm/dl (3.4-5.0) 09/17/17 09:25 Lipase 155 U/L (73-393) 09/17/17 09:25 Urine Color Yellow 09/17/17 12:14 Urine Appearance Slightly cloudy 09/17/17 12:14 Urine pH 6.5 pH (5.0-7.0) 09/17/17 12:14 Ur Specific [place] 1.025 SP.GR. (1.005-1.010) 09/17/17 12:14 Urine Protein 30 mg/dL (NEGATIVE) H 09/17/17 12:14 Urine Glucose (UA) Negative mg/dL (NEGATIVE) 09/17/17 12:14 Urine Ketones Negative mg/dL (NEGATIVE) 09/17/17 12:14 Urine Blood 250 /ul (NEGATIVE) H 09/17/17 12:14 Urine Nitrate Negative (NEGATIVE) 09/17/17 12:14 Urine Bilirubin Negative mg/dl (NEGATIVE) 09/17/17 12:14 Prot Sulfosalicylic Acd 2+ mg/dL (0) H 09/17/17 12:14 Urine Urobilinogen Normal EU/dl (NORMAL) 09/17/17 12:14 Ur Leukocyte Esterase Negative /ul (NEGATIVE) 09/17/17 12:14 Urine RBC 10-25 /hpf (0-5) H 09/17/17 12:14 Urine WBC Trace /hpf (0-5) H 09/17/17 12:14 Ur Epithelial Cells 0-5 /hpf (0-5) 09/17/17 12:14 Urine Bacteria 1+ (NONE) H 09/17/17 12:14 Urine Culture Comments No culture indicated 09/17/17 12:14 Assessment/Plan - Assessment/Plan (1) Renal mass, right Assessment: likely due to hemorrhagic cyst r/o tumor Problem: Acute (2) Supratherapeutic INR Assessment: Vit k 5 mg PO x 1 given in the ER. will do a follow up INR. If still elevated and if with possible urologic procedure in the morning , will give FFP or 4 PCC (kcentra). Problem: Acute (3) Flank pain Assessment: continue with IVF and IV morphine PRN. Problem: Acute (4) Paroxysmal A-fib Problem: Acute (5) Hypothyroid Problem: Acute
[2017-09-17] MEDS ORDERED: AMIODARONE HCL 200 MG TABLET PO SCH (15:00)
[2017-09-17 15:36] LABS: TSH * 4.622 uIU/mL (0.358-3.74)
[2017-09-17] MEDS ORDERED: MORPHINE SULFATE 2 MG/ML DISP.SYRIN IV PRN (16:53)
[2017-09-17] MEDS: LISINOPRIL 20 MG TABLET PO SCH (17:03)
[2017-09-17 18:08] LABS: Hematocrit 39.5 % (37.0-47.0); Hemoglobin 12.8 gm/dL (12.5-16.0); Mean Corpuscular Hemoglobin 30.8 pg (27-31); Mean Corpuscular Hgb Conc 32.4 g/dl (32-36); Mean Platelet Volume 11.1 fl (6.0-9.5); Neutrophil # 3.4 K/mm3 (1.3-6.0); Neutrophil % 64.1 % (42-75.0); Platelet Count 148 K/mm3 (150-450); Red Blood Count 4.16 M/mm3 (4.2-5.4); Red Cell Distribution Width 14.5 % (11.5-14.0); White Blood Count 5.2 K/mm3 (4.0-10.5)
[2017-09-17 18:33] LABS: Prothrombin Time (Patient) 48.5 Seconds (9.0-11.0)
[2017-09-17 20:23] LABS: INR 4.77 INR (0.90-1.10)
[2017-09-18 06:08] LABS: Prothrombin Time (Patient) 17.2 Seconds (9.0-11.0)
[2017-09-18 06:25] LABS: INR 1.71 INR (0.90-1.10)
--- NOTE | 2017-09-18 06:49 | CONS ---
HPI - General Narrative: HAVE NOT SEEN PATIENT YET, GATHERING DATA WILL SEE LATER TODAY. 87-YEAR-OLD Female on Coumadin with supratherapeutic INR at 5 and developed right sided flank pain. Imaging with a right-sided lesion my review of x-rays not overly concerning suspect probably some sort of bleed secondary to supratherapeutic INR. Either way lesion pretty small there is no enhancement which favors benign. It is visible with ultrasound making it easier to follow. I would not obtain an MRI. 09/12 voided UA: 10-25 RBC, 1+ bacteria I believe this was catheterized but I cannot tell from computer. Creatinine history: 2015 2.15 09/12 0.99 09/12 ultrasound: 1.6 cm partially cystic hypodensity, no hydronephrosis. 09/12 CT urogram FM: Hyperdense mass, nonenhancing midpole right kidney 2.4 x 1.1 cm. Subtle right UPJ findings. Normal left. Ureter is a little tortuous proximally. There is no delayed excretion bilaterally. Multiple other nonspecific findings. Location: Right flank Duration: Yesterday Severity/Stage: Was severe now mild if at all Associated Sx's: No nausea or fevers Modifying factors: Has gotten better since admission and reversal of Coumadin Quality: Was sharp now dull Past medical history: Includes atrial fibrillation and congestive heart failure for which she is on Coumadin. Hypothyroid. Prior TIA. Patient reports she has passed stones in the past. Past surgical history: no prior urologic surgery Family history: Noncontributory Social history: Nonsmoker Review of systems: General: Severe right-sided flank pain as mentioned above much better today, no nausea Lungs: No SOB Heart: Atrial fibrillation on Coumadin GI: Occasional bowel trouble but no diarrhea or constipation currently Endocrine: Not diabetic : No gross hematuria. No UTI-like symptoms. 14 point review of systems otherwise negative, important positives noted. - History of Present Illness Allergies/Adverse Reactions: Allergies No Known Allergies Allergy (Verified 09/17/17 14:06) Home Medications: Home Medications Medication Instructions Recorded Last Taken Warfarin Sodium [Coumadin] 7 mg PO MO 06/22/16 06/21/16 Warfarin Sodium [Jantoven] 5 mg PO SUTUWETHFRSA 06/25/16 12/24/16 Aloe Vera 25 mg PO DAILY 09/17/17 Unknown L.acidoph,Paracasei, B.lactis 1 each PO DAILY 09/17/17 Unknown [Probiotic] - Patient's Past Medical History Patient History - Medical: No pertinent hx, Kidney stone, Osteoporosis, Other Patient History - Cardiac/Respiratory: Atrial Fibrillation, CVA/Stroke, Hypertension, Hyperlipidemia Patient History - Cancer: No Hx of Cancer Patient History - Surgical Procedures: Appendectomy, Hysterectomy Patient History - Other: None - Family History Mother Family History - Medical: Family History - Cardiac/Respiratory: No pertinent hx, History Unknown Family History - Cancer: No pertinent family hx Father Family History - Medical: Family History - Cardiac/Respiratory: No pertinent hx, History Unknown Family History - Cancer: No pertinent family hx Sister Family History - Medical: Family History - Cardiac/Respiratory: History Unknown Family History - Cancer: No pertinent family hx Brother Family History - Medical: Family History - Cardiac/Respiratory: Aneurysm Family History - Cancer: No pertinent family hx - Social History Living Situations: spouse Abuse History: No History of abuse Psych History: No pertinent hx Smoking Status: Never smoker Have you smoked in the past 12 months: No Do you dip or chew tobacco: No Patient requests Smoking Cessation Consult: No Initiate information on Smoking Cessation: No Alcohol Use: none Drug Use: none - Immunizations Immunizations Up to Date: Yes Hx Pneumococcal Vaccination: Yes History of Influenza Vaccine: No Procedures OPEN REDUC-INT FIX FEMUR (06/18/13) Medications - Medications Current Medications: Current Medications Sodium Chloride (Sodium Chloride 0.9%) 1,000 mls @ 30 mls/hr IV .Q24H PRN PRN Reason: HYDRATION Stop: 10/17/17 09:16 Last Infusion: 09/17/17 17:02 Dose: 30 mls/hr Lisinopril (Zestril) 20 mg PO DAILY SHE Stop: 10/17/17 17:01 Last Admin: 09/17/17 17:03 Dose: 20 mg Physical Examination - Exam Narrative: General: Nontoxic, no acute distress currently, definitely not in renal colic Psych: Alert and oriented HEENT: EOM grossly intact Lungs: Respirations unlabored, clear Abdomen: Soft no peritoneal signs Neuro: sensation intact Extremities: Moves all 4 without difficulty Heart: Regular Skin: No significant bruising no rashes Back: No CVA tenderness bilaterally Vital Signs: Vital Signs - Last Taken Temp 97.9 F 09/18/17 02:10 Pulse 69 09/18/17 02:10 Resp 18 09/18/17 02:10 BP 189/85 09/18/17 02:10 Pulse Ox 94 09/18/17 02:10 O2 Oxygen Delivery Method Room Air - Results and Findings: Narrative: Right renal colic: My suspicion based on CT and clinical picture is possibly hemorrhagic cyst with recent bleed secondary to supratherapeutic INR versus partial obstruction from relative narrowing and proximal ureter versus something else. With reversal of INR patient has improved and is clinically a lot better. Urine did not look infected. Truthfully read on CT did not look obstructing in nature as the contrast was excreting symmetrically bilaterally. I do need to follow her as an outpatient to be safe with ultrasound in approximately aches weeks and repeat urinalysis. Depending on ultrasound findings may repeat CT down the road. Lesion is very small either way so in worse case scenario would probably managed conservatively anyway. I have okayed her to have a regular diet. In regards to Coumadin she is 87 years old if she is a fall risk at home may need to rediscuss risk versus benefit situation but with atrial fibrillation probably best she stay on it. I think if INR is closer to 2 or 3 should be okay. If symptoms return would repeat an ultrasound looking for hydronephrosis or change in size of lesion. I am okay with her going home today. I had tentatively planned for the operating room not knowing if this was an ongoing acute bleed or if she was experiencing severe pain with possible obstruction my plan was to proceed with cystoscopy and retrogrades if that was the case. Fortunately that did not play out. Lab/Microbiology results last 24 hrs: Abnormal/Pending Laboratory Last 24 HRS 09/18/17 09/17/17 09/17/17 05:54 18:05 18:05 RBC 4.16 L RDW 14.5 H Plt Count 148 L MPV 11.1 H Lymphocytes % 18.1 L Monocytes % 14.3 H Lymphocytes # 1.0 L PT 17.2 H 48.5 H INR (Anticoag Therapy) 1.71 H 4.77 H* Urine Protein Urine Blood Prot Sulfosalicylic Acd Urine RBC Urine WBC Urine Bacteria 09/17/17 12:14 RBC RDW Plt Count MPV Lymphocytes % Monocytes % Lymphocytes # PT INR (Anticoag Therapy) Urine Protein 30 H Urine Blood 250 H Prot Sulfosalicylic Acd 2+ H Urine RBC 10-25 H Urine WBC Trace H Urine Bacteria 1+ H
[2017-09-18] MEDS: LEVOTHYROXINE SODIUM 50 MCG TABLET PO SCH (07:07)
[2017-09-18] MEDS: LISINOPRIL 20 MG TABLET PO SCH ×2 (07:36→08:48)
[2017-09-18] MEDS: AMIODARONE HCL 200 MG TABLET PO SCH (08:09)
[2017-09-18] MEDS: SACCHAROMYCES BOULARDII 250 MG CAPSULE PO SCH (08:10)
[2017-09-18] MEDS: NORMAL SALINE 1,000 ML IV PRN (10:41)
[2017-09-18] MEDS ORDERED: LISINOPRIL 20 MG TABLET PO ONE ×2 (11:00→21:00)
--- NOTE | 2017-09-18 11:38 | PN ---
Subjective - Date and Time Seen Date: 09/18/17 Time: 11:34 Subjective Narrative: patient says her pain is 2/10 but she feels better. no gross hematuria. Objective - Review of Systems Generalized/Overall Review: Denies: Chills, Fever Respiratory: Denies: Cough, Shortness of Breath Cardiac: Denies: Chest Pain, Edema, Palpitations Abdominal: Denies: Nausea, Vomiting Genitourinary Symptoms: Reports: Other - right flank pain. Denies: Frequency, Hesitancy - Vitals Vitals: Last Vital Signs Temp 37.1 C 09/18/17 10:32 Pulse 68 09/18/17 11:26 Resp 18 09/18/17 10:32 BP 211/82 09/18/17 11:26 Pulse Ox 95 09/18/17 10:32 - Abnormal Lab Findings Abnormal Lab Findings: Abnormal Lab Results 09/17/17 09/17/17 09/17/17 Range/Units 12:14 18:05 18:05 RBC 4.16 L (4.2-5.4) M/mm3 RDW 14.5 H (11.5-14.0) % Plt Count 148 L (150-450) K/mm3 MPV 11.1 H (6.0-9.5) fl Lymphocytes % 18.1 L (20-51) % Monocytes % 14.3 H (0.0-9) % Lymphocytes # 1.0 L (1.5-3.5) k/mm3 PT 48.5 H (9.0-11.0) Seconds INR (Anticoag Therapy) 4.77 H* (0.90-1.10) INR Urine Protein 30 H (NEGATIVE) mg/dL Urine Blood 250 H (NEGATIVE) /ul Prot Sulfosalicylic Acd 2+ H (0) mg/dL Urine RBC 10-25 H (0-5) /hpf Urine WBC Trace H (0-5) /hpf Urine Bacteria 1+ H (NONE) 09/18/17 Range/Units 05:54 RBC (4.2-5.4) M/mm3 RDW (11.5-14.0) % Plt Count (150-450) K/mm3 MPV (6.0-9.5) fl Lymphocytes % (20-51) % Monocytes % (0.0-9) % Lymphocytes # (1.5-3.5) k/mm3 PT 17.2 H (9.0-11.0) Seconds INR (Anticoag Therapy) 1.71 H (0.90-1.10) INR Urine Protein (NEGATIVE) mg/dL Urine Blood (NEGATIVE) /ul Prot Sulfosalicylic Acd (0) mg/dL Urine RBC (0-5) /hpf Urine WBC (0-5) /hpf Urine Bacteria (NONE) - Exam Constitutional: Present: Alert, Oriented x3, Cooperative ENT Exam: Present: hearing grossly normal Neck: Present: supple Respiratory: Present: decreased breath sounds, No rales, No wheezing Cardiovascular/Chest: Present: regular rate, rhythm, no JVD, systolic murmur Abdomen: Present: Normal bowel sounds, soft, nontender, tender Extremity: Present: no pedal edema, no calf tenderness Assessment/Plan - Problems/Diagnosis (1) Renal mass, right Problem: Acute Narrative: likely hemorrhagic cyst more than renal tumor. urology on consult. (2) Supratherapeutic INR Problem: Acute Narrative: s/p Vit k and FFP (3) Flank pain Problem: Acute Narrative: 10/05, improved (4) Paroxysmal A-fib Problem: Acute (5) Hypothyroid Problem: Acute (6) Hypertension Problem: Acute (7) Hypertension Problem: Chronic Qualifiers: Hypertension type: essential hypertension Qualified Code(s): I10 - Essential (primary) hypertension Narrative: systolic. on lisinopril and doubled dose today. Vasotec IV q 6 hours started.
[2017-09-18] MEDS: ENALAPRILAT DIHYDRATE 1.25 MG/ML VIAL IV SCH ×2 (13:03→18:05)
[2017-09-18] MEDS ORDERED: oxyCODONE HCL/ACETAMINOPHEN 1 TAB TABLET PO PRN (18:44)
--- NOTE | 2017-09-19 05:37 | DS ---
<Judy Rodriguez - Last Filed: 09/19/17 07:07> (1) RT Renal hemorrhagic cyst Problem: Acute (2) Supratherapeutic INR Problem: Acute (3) Hypothyroid Problem: Acute (4) Atrial fibrillation Problem: Chronic (5) CHF (congestive heart failure), NYHA class III Problem: Chronic (6) Hypertension Problem: Chronic QualifierTitle: Hypertension type: essential hypertension Qualified Code( s): I10 - Essential (primary) hypertension (7) Osteoporosis Problem: Chronic (8) TIA (transient ischemic attack) Problem: Chronic QualifierTitle: Transient cerebral ischemia type: unspecified Qualified Code(s): G45.9 - Transient cerebral ischemic attack, unspecified Description of Stay: is 87-year-old [facility] pt of Dr. Hearn with a PMH of: Atrial Fibrillation, CHF, HTN, Hypothyroidism & TIA lwceleste was admitted on 09/17/2017 because of RT flank pain. One day prior to admission the patient's INR was elevated at 5.8 due to Coumadin which she takes for her paroxysmal atrial fibrillation. The patient did not have any gross bleeding as per assisted living personnel. Coumadin was put on hold. In the supply clerk before her admission, the patient woke up with right upper quadrant abdominal pain which radiated to her right flank area. The pain did not improve and settled down and her right flank area and so she went to the emergency room because she thought she had a kidney stone like in the years past. The CT scan in the emergency room did not show any kidney stones but did show a mass in her mid pole of her right kidney. The differential included renal cyst, hemorrhage in the renal cyst or even a renal tumor. The emergency room physician consulted the urologist and he recommended doing the CT urogram , UA & reversing the Coumadin effects for possible urologic procedure. She got 5 mg of Vit K in the ER. She received another was transfused with FFP which lowered her INR to 1.7. She had a retroperitoneal US which showed a 1.6cm hypodensity area in RT kidney which was concerning for a complex cyst which corresponded to the abnormality seen on the CT Abd, but there was no hydronephrosis. She was seen by the Urologist- Dr. Crenshaw on 09/18. He felt the pt's clinical picture was possibly hemorrhagic cyst with recent bleed secondary to Supratherapeutic INR vs partial obstruction from relative narrowing. The cyst/lesion was determined to be also very small and could be be managed conservatively. With the pt's reversal of the INR, the pt seemed to be doing better clinically. She will follow-up with Dr. Crenshaw in 6 weeks with repeat Retroperinoneal US, UA & BMP completed prior to the appt. During the hospital stay, pt also has a CXR which had findings concerning for Pulmonary Venous congestion and she was diuresed with Lasix. She will be discharged on Lasix 20 mg BID. She was also hypertensive during with the BPs as high in the 200s requiring IV vasotec. She was started on Lisinopril 20 mg daily and will continue at discharge but could consider increasing frequency to B.I.D, with the goal of gradual decrease of BPs. She will resume coumadin for the INR goal of 2-3. She is in a stable condition to be discharged home Procedures Performed: none Discharge Disposition: Home self care Disposition: Home self-care Condition: Stable Discharge Activity: Activity as tolerated Discharge Diet: General/regular food, Low salt Referrals: Librado Hearn MD [Primary Care Provider] - Problem Oriented Discharge Instructions to Patient/Family: Renal Mass, CHF Patient Instructions Additional Patient Instructions (free text): -Please make TCM appointment unless jail discharge. Thank you! Susan @ ext:[email or web address]. Follow-up in the office with Dr. Guzman in 6 weeks with UA,BMP, and Retropert U/S prior. Follow up appointment with Dr. Guzman on 10/30/17 at 12:00pm in [place] office. Please arrive 15min. early to check in. Follow-up with Dr. Springer on 09/23/17 at 1:15pm. Prescriptions (Any new or edited meds): Amiodarone HCl [Cordarone] 200 mg PO DAILY #30 tablet Furosemide [Lasix] 20 mg PO DAILY #30 tablet Levothyroxine Sodium [Levo-T] 88 mcg PO DAILY #30 tablet Lisinopril [Zestril] 40 mg PO BID #120 tablet Potassium Chloride [Klor-Con] 10 meq PO DAILY #30 packet traMADol HCL [Tramadol HCl] 50 mg PO QID PRN #30 tablet PRN Reason: Pain Warfarin Sodium [Coumadin] 5 mg PO DAILY #30 tablet Complete Home Medications List: Complete Home Medication List: Aloe Vera 25 mg PO DAILY 09/17/17 L.acidoph,Paracaneli, B.lactis [Probiotic] 1 each PO DAILY 09/17/17 Amiodarone HCl [Cordarone] 200 mg PO DAILY #30 tablet 09/19/17 Furosemide [Lasix] 20 mg PO DAILY #30 tablet 09/19/17 Levothyroxine Sodium [Levo-T] 88 mcg PO DAILY #30 tablet 09/19/17 Lisinopril [Zestril] 40 mg PO BID #120 tablet 09/19/17 Potassium Chloride [Klor-Con] 10 meq PO DAILY #30 packet 09/19/17 Warfarin Sodium [Coumadin] 5 mg PO DAILY #30 tablet 09/19/17 traMADol HCL [Tramadol HCl] 50 mg PO QID PRN #30 tablet 09/19/17 Amb Orders for Discharge: Basic Metabolic Panel Time Frame: 09/23/17, Location: Determined By Patient Basic Metabolic Panel Time Frame: 6 Weeks, Location: Determined By Patient Prothrombin Time Time Frame: 09/23/17, Location: Determined By Patient Urinalysis Time Frame: 6 Weeks, Location: Determined By Patient US Retroperitoneal Complete * Time Frame: 6 Weeks, Location: Determined By Patient <Deonna Springer - Last Filed: 09/19/17 08:57> (1) Renal mass, right Problem: Acute (2) Supratherapeutic INR Problem: Acute (3) Flank pain Problem: Acute (4) Paroxysmal A-fib Problem: Acute (5) Hypothyroid Problem: Acute (6) Hypertension Problem: Acute (7) Hypertension Problem: Chronic Qualifiers: Hypertension type: essential hypertension Qualified Code(s): I10 - Essential (primary) hypertension
[2017-09-19] MEDS: LEVOTHYROXINE SODIUM 50 MCG TABLET PO SCH (07:57)
--- NOTE | 2017-09-19 08:24 | PN ---
Isha Note - Interim Narrative: 09/19/17 08:21 I saw and examined this patient on09/19/2017. I agree with the narrative and plan of SHONDA Hurst except for her discharge medications. Ammendments and corrections have been made. Discussions about anticoagulation and risk of bleeding and clots were discussed with the patient . She has decided to go back to Coumadin. Will see patient in the office on Saturday for an INR, BMP draw and to recheck on her BP.
[2017-09-19] MEDS: SACCHAROMYCES BOULARDII 250 MG CAPSULE PO SCH (09:04)
[2017-09-19] MEDS: AMIODARONE HCL 200 MG TABLET PO SCH (09:04)
[2017-09-19] MEDS ORDERED: LISINOPRIL 20 MG TABLET PO ONE (09:31)
[2017-09-19] MEDS: LISINOPRIL 20 MG TABLET PO SCH (10:10)
[2017-09-19 11:05] VITALS: BP 169/72
[2017-09-28] MEDS ORDERED: AMIODARONE HCL 200 MG TABLET PO SCH (09:00)
== END 2017-09-19 14:15 | disposition home or self-care (01) ==
LOC: ER 08:46 → MS 11:56
PROVIDERS: ADMIT Internal Medicine; ATTEND Internal Medicine
DX: N23 Unspecified renal colic; G45.9 Transient cerebral ischemic attack, unspecified; E03.9 Hypothyroidism, unspecified; N28.1 Cyst of kidney, acquired; I50.9 Heart failure, unspecified; I51.7 Cardiomegaly; Z79.01 Long term (current) use of anticoagulants; I10 Essential (primary) hypertension; M81.0 Age-related osteoporosis without current pathological fracture; N28.89 Other specified disorders of kidney and ureter; I48.91 Unspecified atrial fibrillation; Z68.23 Body mass index [BMI] 23.0-23.9, adult
CPT/HCPCS: 36415; 36430; 71046; 74176; 74178; 76705; 76770; 80053; 81001; 83690; 83880; 84443; 85025; 85610; 87086; 93005; 96374; 96376; 99285; G0378; P9060